=== PATIENT | male | born 1970 | race Caucasian/White ===

== ENCOUNTER 2017-04-16 10:09 | Emergency (ER) | payer MEDICAID ==
[2017-04-16] MEDS: FLUORESCEIN STRIP LEFT EYE (13:02)
== END 2017-04-16 13:35 | disposition home or self-care (01) ==
LOC: FTE 10:09
DX: S05.02XA Injury of conjunctiva and corneal abrasion without foreign body, left eye, initial encounter (principal); I10 Essential (primary) hypertension; E11.9 Type 2 diabetes mellitus without complications; X58.XXXA Exposure to other specified factors, initial encounter; Y92.9 Unspecified place or not applicable
CPT/HCPCS: 99283; Z7502

== ENCOUNTER 2017-11-15 17:01 | Emergency (ER) | payer MEDICAID | END 2017-11-15 18:20 | disposition home or self-care (01) | LOC: FTE 17:01 | DX: H93.91 Unspecified disorder of right ear (principal); E11.9 Type 2 diabetes mellitus without complications; I10 Essential (primary) hypertension | CPT/HCPCS: 99282; Z7502 ==